=== PATIENT | female | born 1950 | race African-American/Black ===

== ENCOUNTER → 2018-04-27 | Day surgery (SDC) | payer OTHER ==
[2018-04-26 09:38] LABS: BASOPHILS # (AUTO) 0.1 (0.0-0.1); BASOPHILS % 0.3 % (0.0-1.0); EOSINOPHILS # (AUTO) 0.1 (0.0-0.4); EOSINOPHILS % 0.8 % (0.0-6.0); HEMATOCRIT 36.5 % (34.2-44.1); HEMOGLOBIN 11.5 g/dL (12.0-16.0); LYMPHOCYTES # (AUTO) 1.2 (1.0-3.2); LYMPHOCYTES % 8.1 % (18.0-39.1); MEAN CORPUSCULAR HEMOGLOBIN 27.4 pg (28-32); MEAN CORPUSCULAR HGB CONC 31.5 g/dL (31-35); MEAN CORPUSCULAR VOLUME 86.9 fL (81-99); NEUTROPHILS % 83.3 % (38.7-80.0); PLATELET COUNT 187 x10e3/uL (140-360); RED CELL DISTRIBUTION WIDTH 14.9 % (11.7-14.4)
[~2018-04-27] MED LIST: ASPIRIN325 MG PO; FUROSEMIDE40 MG PO; INSULIN REGULAR, HUMAN 100 UNIT/1 ML 3ML VIAL ONE; ISOSORBIDE DINI10 MG PO; KETAMINE HCL INJ 50 MG/ML 10 ML VIAL ONE; LIDOCAINE HCL 2% LOCAL INJ 5 ML SDV VIAL INJ ONE; LINZESS PO; MIDAZOLAM HCL 2 MG/2 ML VIAL ONE; NIFEDIPINE ER30 M1 PO; NOVOLOG MI100 UNIT/1 PO; PLAVIX75 MG PO; PROPOFOL IV EMULSION 10 MG/ML 50 ML VIAL ONE; SIMVASTATIN20 MG PO; SYNTHROID125 MCG PO
--- OUTSIDE RECORDS SUMMARY | 2018-04-27 11:27 | XMS REPORT | Clinical Summary ---
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 Disp. Refills Start End Date Status Date TURMERIC ROOT EXTRACT Take 1 tablet by mouth Active ORAL daily. METFORMIN HCL (METFORMIN Take 500 mg by mouth 2 Active ORAL) (two) times a day. ASPIRIN ORAL Take 325 mg by mouth Active daily. multivitamin (THERAGRAN) Take 1 tablet by mouth Active tablet daily. LEVOTHYROXINE SODIUM Take 75 mg by mouth Active (SYNTHROID ORAL) daily. furosemide (LASIX) 40 mg Take 40 mg by mouth Active tablet daily. insulin ASPART (NovoLOG) Inject under the skin as Active 100 unit/mL injection needed for high blood sugar (per sliding scale). Active Problems Problem Noted Date Endometrial cancer (HCC) 10/25/2016 Encounters Date Type Specialty Care Team Description 11/29/2017 Office Visit Gynecologic Oncology Abi Suh MD Endometrial cancer (Primary Dx) 08/04/2017 Office Visit Gynecologic Oncology Abi Suh MD Endometrial cancer after 04/26/2017 Family History Medical History Relation Name Comments Diabetes Brother Ovarian cancer Mother Relation Name Status Comments Brother Mother Social History Tobacco Use Types Packs/Day Years Used Date Never Smoker Smokeless Tobacco: Never Used Alcohol Use Drinks/Week oz/Week Comments No Sex Assigned at Date Recorded Not on file Last Filed Vital Signs Vital Sign Reading Time Taken Blood Pressure 119/67 11/29/2017 3:27 PM CDT Pulse 98 11/29/2017 3:27 PM CDT Temperature - - Respiratory Rate - - Oxygen Saturation - - Inhaled Oxygen - - Concentration Weight 138 kg (305 lb) 11/29/2017 3:27 PM CDT Height 170.2 cm (5' 7") 11/29/2017 3:27 PM CDT Body Mass Index 47.77 11/29/2017 3:27 PM CDT Plan of Treatment Date Type Specialty Care Team Description 05/23/2018 Office Visit Gynecologic Oncology Abi Suh MD [address] [address] Health Maintenance Due Date Last Done Comments BREAST CANCER SCREENING 01/17/2000 COLON CANCER SCREENING 01/17/2000 SHINGRIX VACCINE (#1) 01/17/2000 ZOSTER VACCINE 2010 PNEUMOCOCCAL 2015 POLYSACCHARIDE VACCINE AGE 65 AND OVER INFLUENZA VACCINE 02/08/2018 04/14/2017, 04/28/2016 PNEUMOCOCCAL-13 Completed 06/23/2017 Procedures Procedure Name Priority Date/Time Associated Diagnosis Comments [facility] Routine 01/05/2018 ORDER 12:00 AM CDT [facility] Routine 09/12/2017 ORDER 12:00 AM [employer] HE[employer] [facility] Routine 05/17/2017 ORDER 12:00 AM [employer] after 04/26/2017 Results * [facility] custom order (01/05/2018) Only the most recent of 3 results within the time period is included. Narrative Performed At after 04/26/2017 Insurance Payer Benefit Subscriber ID Type Phone Address Plan / Group MEDICAID MEDICAID xxxxxxxxx Medicaid [place]xxxxxxxx [facility]
--- OUTSIDE RECORDS SUMMARY | 2018-04-27 11:27 | XMS REPORT ---
Author Organization Unknown Address [address] [place] [address] Phone [phone] Care Team Providers Care Cable Splicing Technician Name Role Phone JUAN "SANDRINE" MANUEL LORA 3 [phone] BRENT ALSTON 61 Unavailable MARCUS ZAMORA MD 114 [phone] ADDISVINCENZO TONG 110 [phone] Allergies Code Code System Name Reaction Severity Status Onset NKDA Medications Name Status Start Date Stop Date Anoro Ellipta 62.5 mcg-25 mcg/actuation powder for inhalation Completed 04/13/2017 azithromycin 250 mg tablet Completed 07/27/2016 Breo Ellipta 100 mcg-25 mcg/dose powder for inhalation Active Not available clopidogrel 75 mg tablet Active Not available escitalopram 10 mg tablet Active Not available fluconazole 150 mg tablet Completed 04/13/2017 fluticasone 50 mcg/actuation nasal spray,suspension Completed 12/15/2016 furosemide 40 mg tablet Active Not available gabapentin 600 mg tablet Completed 04/13/2017 hydrocodone 7.5 mg-acetaminophen 325 mg tablet Active Not available ibuprofen 600 mg tablet Completed 12/15/2016 Klor-Con M20 mEq tablet,extended release Completed 10/06/2017 levothyroxine 125 mcg tablet Active Not available Linzess 145 mcg capsule Completed 06/23/2017 lisinopril 20 mg tablet Completed 10/06/2017 Lyrica 100 mg capsule Active Not available metformin 500 mg tablet Completed 10/06/2017 Microlet Lancet Completed 12/15/2016 Miralax 17 gram oral powder packet Take 1 packet every day by oral route. Completed 10/21/2017 nifedipine ER 30 mg tablet,extended release Take 1 tablet every day by oral route for 90 days. Active Not available NovoFine 30 30 gauge x 1/3" needle Completed 08/02/2017 Novofine Autocover 30 gauge x 1/3" needle Completed 09/29/2017 Novolog Mix 70-30 FlexPen U-100 Insulin 100 unit/mL subcutaneous pen Active Not available OneTouch Ultra Blue Test Strip Active Not available OneTouch Ultra2 kit Active Not available Pneumovax 23 25 mcg/0.5 mL injection syringe Completed 04/28/2016 polyethylene glycol 3350 17 gram/dose oral powder Active Not available Senna Soft 15 mg tablet Take 2 tablets every day by oral route. Completed 10/21/2017 simvastatin 20 mg tablet Take 1 tablet every day by oral route. Active Not available sulfamethoxazole 800 mg-trimethoprim 160 mg tablet Completed 04/28/2016 Tresiba FlexTouch U-100 insulin 100 unit/mL (3 mL) subcutaneous pen Active Not available Ventolin HFA 90 mcg/actuation aerosol inhaler Active Not available Victoza 3-Claudy 0.6 mg/0.1 mL (18 mg/3 mL) subcutaneous pen injector Active Not available Notes: Reconciled 04/13/17 CP Problems Name Status Onset Date Source Hypothyroidism Active 06/10/2015 History Polyneuropathy Associated with Type 2 Diabetes Mellitus Active 06/10/2015 History Pure Hypercholesterolemia Unknown 06/10/2015 History Chronic Obstructive Lung Disease Active 06/10/2015 History Sleep Apnea Active 06/10/2015 History Low Back Pain Active 07/25/2015 History Hypertensive Disorder Unknown 09/18/2015 History Morbid Obesity Active 11/27/2015 History Hypercholesterolemia Active 04/28/2016 Endometrial Carcinoma Unknown 08/26/2016 Essential Hypertension Unknown 12/15/2016 History of Malignant Neoplasm of Uterine Body Active 12/15/2016 History of Total Hysterectomy Active 12/15/2016 Endometrial Carcinoma Unknown 01/18/2017 Hypertensive Heart Failure Active 06/23/2017 Diastolic Dysfunction Active 06/23/2017 Peripheral Vascular Disease Active 06/23/2017 Procedures Date Name Performed by 07/27/[address] [phone] (Work [address]) 07/27/2016 US, Echocardiogram [address] [phone] (Work Place) 07/28/2016 US, Echocardiogram, Transthoracic, Complete [address] [phone] (Work Place) 04/13/2017 MAMMO, Screening, Bilateral [facility] [address] [place] [address] (Work [address]) 06/23/2017 Bone Density, Dual Photon Absorptiometry [facility] [address] [place] [address] (Work Place) 06/23/2017 MAMMO, Screening, Digital, Bilateral [facility] [address] [place] [address] (Work Place) Notes: 01/02/2016: S/P Cataract Surgery bilateraly; Surgery Date: 2013 S/P Cervical Laminectomy; Surgery Date: 2011 Lab Results Date Name Specimen Result Interpretation Description Value Range Status Address 09/29/2017 CMP, Serum or Plasma High Glucose 175 mg/dL 65-99 mg/dL Final [facility]: 9055 Adrienne lucy Jimenez [address] [place] [address] High Urea Nitrogen (BUN) 48 mg/dL 7-25 mg/dL Final [facility]: [address]055 [address] High Creatinine 1.68 mg/dL 0.50-0.99 mg/dL Final [facility]: 9055 [address] lucy [address] Low eGFR Non-afr. Cypriot 31 mL/min/1.73m2 > or=60 mL/min/1.73m2 Final [facility]: 9055 Adriennelucy Bryson [address] Low eGFR 36 mL/min/1.73m2 > or=60 mL/min/1.73m2 Final [facility]: 9055 Ad[address] lucy [address] High BUN/creatinine Ratio 29 (calc) 6-22 (calc) Final [facility]: 9055 [address] lucy [address] Low Sodium 134 mmol/L 135-146 mmol/L Final [facility]: [address] lucy [address] High Potassium 5.8 mmol/L 3.5-5.3 mmol/L Final [facility]: 9055 Ad[address] lucy [address] Normal Chloride 98 mmol/L 98-110 mmol/L Final [facility]: [address] lucy [address] Normal Carbon Dioxide 30 mmol/L 20-31 mmol/L Final [facility]: [address] lu[address] Normal Calcium 9.5 mg/dL 8.6-10.4 mg/dL Final [facility]: [address] Normal Protein, Total 8.0 g/dL 6.1-8.1 g/dL Final [facility]: [address] lu[address] Normal Albumin 3.7 g/dL 3.6-5.1 g/dL Final [facility]: [address] High Globulin 4.3 g/dL (calc) 1.9-3.7 g/dL (calc) Final [facility]: 9[address] lu[address] Low Albumin/globulin Ratio 0.9 (calc) 1.0-2.5 (calc) Final [facility]: [address] Normal Bilirubin, Total 0.2 mg/dL 0.2-1.2 mg/dL Final [facility]: 9055 [address] lucy [address] Normal Alkaline Phosphatase 104 U/L 33-130 U/L Final [facility]: [address] Ad[address] lucy [address] Normal Ast 16 U/L 10-35 U/L Final [facility]: [address] Ad[address] lucy [address] Normal Alt 16 U/L 6-29 U/L Final [facility]: [address]055 [address] lu[address] 09/29/2017 Lipid Panel, Serum Normal Cholesterol, Total 188 mg/dL <200 mg/dL Final [facility]: [address] lucy [address] Normal HDL Cholesterol 63 mg/dL >50 mg/dL Final [facility]: 9055 Ad[address] lucy [address] High Triglycerides 169 mg/dL <150 mg/dL Final [facility]: [address] lucy [address] Normal LDL-cholesterol 98 mg/dL (calc) Final [facility]: [address] Normal Chol/hdlc Ratio 3.0 (calc) <5.0 (calc) Final [facility]: [address] lu[address] Normal Non HDL Cholesterol 125 mg/dL (calc) <130 mg/dL (calc) Final [facility]: [address] 09/29/2017 Tech Slide Review Normal White Blood Cell Count 7.7 thousand/uL 3.8-10.8 thousand/uL Final [facility]: 9055 Davin Meredith Normal Red Blood Cell Count 4.01 million/uL 3.80-5.10 million/uL Final [facility]: [address] Low Hemoglobin 11.2 g/dL 11.7-15.5 g/dL Final [facility]: 9058 Davin Meredith Normal Hematocrit 35.0 % 35.0-45.0 % Final [facility]: 9044 Davin Meredith Normal Mcv 87.3 fL 80.0-100.0 fL Final [facility]: 9055 Adrienne Hopkins Jin Normal Mch 27.9 pg 27.0-33.0 pg Final [facility]: 9055 Dav[address] Meredith Normal Mchc 32.0 g/dL 32.0-36.0 g/dL Final [facility]: 9002 Adrienne Hopkins Jin Normal Rdw 13.6 % 11.0-15.0 % Final [facility]: 9020 Davin Meredith Normal Platelet Count 220 thousand/uL 140-400 thousand/uL Final [facility]: 9054 Davin Meredith Normal Mpv 12.4 fL 7.5-12.5 fL Final [facility]: 9049 Davin Meredith Normal Absolute Neutrophils 6699 cells/uL 1836-9988 cells/uL Final [facility]: 9039 Davin Meredith Low Absolute Lymphocytes 847 cells/uL 850-3900 cells/uL Final [facility]: 9062 Davin Meredith Low Absolute Monocytes 154 cells/uL 200-950 cells/uL Final [facility]: 9037 Adrienne Hopkins Jin Low Absolute Eosinophils 0 cells/uL 15-500 cells/uL Final [facility]: 9099 Adrienne Hopkins Jin Normal Absolute Basophils 0 cells/uL 0-200 cells/uL Final [facility]: 9062 Davin Meredith Normal Neutrophils 87 % Final [facility]: 9017 Davin Meredith Normal Lymphocytes 11 % Final [facility]: 9027 Adrienne Hopkins Jin Normal Monocytes 2 % Final [facility]: [address] [place] [address] Normal Eosinophils 0 % Final [facility]: [address] [place] [address] Normal Basophils 0 % Final [facility]: [address] [place] [address] Comment(s) Final [facility]: [address] [place] [address] 09/29/2017 HbA1C (Hemoglobin a1C), Blood High Hemoglobin a1C 9.7 % of total HGB <5.7 % of total HGB Final [facility]: [address] [place] [address] EAG (mg/dL) 232 (calc) Final [facility]: [address] [place] [address] EAG (mmol/L) 12.8 (calc) Final [facility]: [address] [place] [address] 09/29/2017 T4, Total, Serum Normal T4 (Thyroxine), Total 6.6 mcg/dL 4.5-12.0 mcg/dL Final [facility]: [address] [place] [address] 09/29/2017 BNP (B-type Natriuretic Peptide), Serum or Plasma Normal B Type Natriuretic Peptide (BNP) 18 pg/mL <100 pg/mL Final [facility]: [address] [place] [address] 09/29/2017 TSH, Serum or Plasma Normal Tsh 2.88 mIU/L 0.40-4.50 mIU/L Final [facility]: [address] [place] [address] 04/13/2017 HbA1C (Hemoglobin a1C), Blood High Hemoglobin a1C 11.1 % of total HGB <5.7 % of total HGB Final [facility]: [address] [place] [address] EAG (mg/dL) 272 (calc) Final [facility]: [address] [place] [address] EAG (mmol/L) 15.1 (calc) Final [facility]: [address] [place] [address] 04/13/2017 Lipid Panel, Serum Normal Cholesterol, Total 145 mg/dL <200 mg/dL Final [facility]: [address] [place] [address] Normal HDL Cholesterol 58 mg/dL >50 mg/dL Final [facility]: [address] [place] [address] High Triglycerides 151 mg/dL <150 mg/dL Final [facility]: [address] Ad[address] lu[address] Normal LDL-cholesterol 64 mg/dL (calc) Final [facility]: [address]055 [address] lucy [address] Normal Chol/hdlc Ratio 2.5 (calc) <5.0 (calc) Final [facility]: [address] lu[address] Normal Non HDL Cholesterol 87 mg/dL (calc) <130 mg/dL (calc) Final [facility]: [address] 04/13/2017 TSH, Serum or Plasma Normal Tsh 1.41 mIU/L 0.40-4.50 mIU/L Final [facility]: [address]055 [address] lu[address] 04/13/2017 CMP, Serum or Plasma Normal Glucose 76 mg/dL 65-99 mg/dL Final [facility]: [address] High Urea Nitrogen (BUN) 29 mg/dL 7-25 mg/dL Final [facility]: [address] High Creatinine 1.25 mg/dL 0.50-0.99 mg/dL Final [facility]: [address] Low eGFR Non-afr. Cypriot 44 mL/min/1.73m2 > or=60 mL/min/1.73m2 Final [facility]: 9055 Ad[address]ne lucy [address] Low eGFR 52 mL/min/1.73m2 > or=60 mL/min/1.73m2 Final [facility]: 9055 Ad[address]ne lucy [address] High BUN/creatinine Ratio 23 (calc) 6-22 (calc) Final [facility]: [address] Ad[address]ne lucy [address] Normal Sodium 139 mmol/L 135-146 mmol/L Final [facility]: [address] High Potassium 5.7 mmol/L 3.5-5.3 mmol/L Final [facility]: [address] lucy [address] Normal Chloride 105 mmol/L 98-110 mmol/L Final [facility]: [address] Normal Carbon Dioxide 22 mmol/L 20-31 mmol/L Final [facility]: 9055 [address] lucy [address] Normal Calcium 9.1 mg/dL 8.6-10.4 mg/dL Final [facility], Total 7.7 g/dL 6.1-8.1 g/dL Final [facility]: 9055 Adrienne Bryson [address] Normal Albumin 3.7 g/dL 3.6-5.1 g/dL Final [facility]: [address] High Globulin 4.0 g/dL (calc) 1.9-3.7 g/dL (calc) Final [facility]: 9055 [address] lucy [address] Low Albumin/globulin Ratio 0.9 (calc) 1.0-2.5 (calc) Final [facility]: 9[address] Normal Bilirubin, Total 0.2 mg/dL 0.2-1.2 mg/dL Final [facility]: 9055 [address] lucy [address] Normal Alkaline Phosphatase 100 U/L 33-130 U/L Final [facility]: 9[address] Adrienne Bryson [address] Normal Ast 11 U/L 10-35 U/L Final [facility]: [address] Ad[address]ne lucy [address] Normal Alt 11 U/L 6-29 U/L Final [facility]: 55 Adrienne lucy [address] 04/13/2017 Hepatitis C Virus RNA, Quant, PCR, Serum or Plasma Normal Hepatitis C Antibody non-reactive non-reactive Final [facility]: 55 Ad[address]ne lucy [address] Normal Signal to Cut-off 0.06 <1.00 Final [facility]: 9055 Adrienne Jimenez [address] [place] [address] 04/13/2017 CBC W/ Auto Diff Normal White Blood Cell Count 8.7 thousand/uL 3.8-10.8 thousand/uL Final [facility]: 9[address] lucy [address] Normal Red Blood Cell Count 3.98 million/uL 3.80-5.10 million/uL Final [facility]: 9055 Adrienne Bryson [address] Low Hemoglobin 10.7 g/dL 11.7-15.5 g/dL Final [facility]: [address] Low Hematocrit 33.8 % 35.0-45.0 % Final [facility]: 9055 Davin Meredith Normal Mcv 84.9 fL 80.0-100.0 fL Final [facility]: 9055 Adrienne Hopkins Jin Low Mch 26.9 pg 27.0-33.0 pg Final [facility]: 9055 Adrienne Hopkins [place] Low Mchc 31.7 g/dL 32.0-36.0 g/dL Final [facility]: 9055 Adrienne Hopkins Jin Normal Rdw 14.6 % 11.0-15.0 % Final [facility]: 9055 Adrienne Hopkins Jin Normal Platelet Count 201 thousand/uL 140-400 thousand/uL Final [facility]: 9055 Adrienne Hopkins Jin High Mpv 13.0 fL 7.5-12.5 fL Final [facility]: 9055 Adrienne Hopkins Jin Normal Absolute Neutrophils 5742 cells/uL 6249-0081 cells/uL Final [facility]: 9055 Adrienne Hopkins [place] Normal Absolute Lymphocytes 1984 cells/uL 850-3900 cells/uL Final [facility]: 9[address] Adrienne Hopkins [place] Normal Absolute Monocytes 670 cells/uL 200-950 cells/uL Final [facility]: 9055 Adrienne Hopkins [place] Normal Absolute Eosinophils 244 cells/uL 15-500 cells/uL Final [facility]: 9055 Adrienne Hopkins [place] Normal Absolute Basophils 61 cells/uL 0-200 cells/uL Final [facility]: 9055 Adrienne Hopkins Jin Normal Neutrophils 66 % Final [facility]: 9055 Adrienne Hopkins [place] Normal Lymphocytes 22.8 % Final [facility]: 9[address] Adrienne Hopkins [place] Normal Monocytes 7.7 % Final [facility]: [address] Adrienne Hopkins [place] Normal Eosinophils 2.8 % Final [facility]: 9055 Adrienne Hopkins [place] Normal Basophils 0.7 % Final [facility]: 9055 Davin Meredith 04/13/2017 T4, Free, Serum Normal T4, Free 1.5 NG/dL 0.8-1.8 NG/dL Final [facility]: [address] 06/08/2016 Lipid Panel, Serum Normal Cholesterol, Total 185 mg/dL 125- 200 mg/dL Final [facility] Lab: [address], [place] Normal HDL Cholesterol 65 mg/dL > or=46 mg/dL Final [facility]: [address], [place] Normal Triglycerides 138 mg/dL <150 mg/dL Final [facility]: [address], Liam Normal LDL-cholesterol 92 mg/dL (calc) <130 mg/dL (calc) Final [facility]: [address], Liam Normal Chol/hdlc Ratio 2.8 (calc) < or=5.0 (calc) Final [facility]: [address], [place] Normal Non HDL Cholesterol 120 mg/dL (calc) Final [facility]: [address] [facility], Liam 06/08/2016 CMP, Serum or Plasma High Glucose 192 mg/dL 65-99 mg/dL Final [facility]: [address], [place] Normal Urea Nitrogen (BUN) 24 mg/dL 7-25 mg/dL Final [facility]: [address], [place] High Creatinine 1.07 mg/dL 0.50-0.99 mg/dL Final [facility]: [address], [place] Low eGFR Non-afr. Cypriot 54 mL/min/1.73m2 > or=60 mL/min/1.73m2 Final [facility]: [address], [place] Normal eGFR 63 mL/min/1.73m2 > or=60 mL/min/1.73m2 [address] [facility]: [address], [place] Normal BUN/creatinine Ratio 22 (calc) 6-22 (calc) Final [facility]: [address], [place] Normal Sodium 136 mmol/L 135-146 mmol/L Final [facility]: [address], [place] Normal Potassium 5.1 mmol/L 3.5-5.3 mmol/L Final [facility]: [address], [place] Normal Chloride 101 mmol/L 98-110 mmol/L Final [facility]: [address], [place] Normal Carbon Dioxide 28 mmol/L 20-31 mmol/L Final [facility]: [address], [place] Normal Calcium 9.5 mg/dL 8.6-10.4 mg/dL Final [facility]: [address], [place] Normal Protein, Total 8.0 g/dL 6.1-8.1 g/dL Final [facility]: [address] [facility] [place] Normal Albumin 3.7 g/dL 3.6-5.1 g/dL Final [facility]: [address] [place] High Globulin 4.3 g/dL (calc) 1.9-3.7 g/dL (calc) Final [facility]: [address], [place] Low Albumin/globulin Ratio 0.9 (calc) 1.0-2.5 (calc) Final [facility]: [address] [place] Normal Bilirubin, Total 0.3 mg/dL 0.2-1.2 mg/dL Final [facility]: [address] [place] Normal Alkaline Phosphatase 104 U/L 33-130 U/L Final [facility]: [address], [place] Normal Ast 13 U/L 10-35 U/L Final [facility]: [address] [facility], Liam Normal Alt 12 U/L 6-29 U/L Final [facility]: [address] [facility], Liam 06/08/2016 T4, Total, Serum Normal T4 (Thyroxine), Total 7.9 mcg/dL 4.5-12.0 mcg/dL Final [facility]: [address] [facility], Liam 06/08/2016 TSH, Serum or Plasma Normal Tsh 1.39 mIU/L 0.40-4.50 mIU/L Final [facility]: [address] [facility], Liam 06/08/2016 HbA1C (Hemoglobin a1C), Blood High Hemoglobin a1C 10.1 % of total HGB <5.7 % of total HGB Final [facility]: [address] [facility], Liam Electrocardiogram Rate & Rhythm [facility]: [address] [address], [place] Qrs [facility]: [address] [address], [place] Interval [facility]: [address] [address], [place] QRS Duration [facility]: [address] [address], [place] QT Interval [facility]: [address] [facility] [address], [place] Past Encounters 10/21/2017 Follow-up Visit; Morbid Obesity; Chronic Obstructive Lung Disease; Hypertensive Heart Failure; Diastolic Dysfunction; Peripheral Vascular Disease; Continuous Opioid Dependence; Polyneuropathy Associated with Type 2 Diabetes Mellitus; History of Malignant Neoplasm of Uterine Body; Sleep Apnea; Hypothyroidism; Mixed Hyperlipidemia Juan Gonzalez MD: [id number] [address], Ph. 09/29/2017 Morbid Obesity; Sleep Apnea; Low Back Pain; Hypothyroidism; Polyneuropathy Associated with Type 2 Diabetes Mellitus; Hypertensive Heart Failure; Diastolic Dysfunction; Peripheral Vascular Disease; Chronic Obstructive Lung Disease; Chronic Constipation; History of Malignant Neoplasm of Uterine Body; History of Total Hysterectomy; Mixed Hyperlipidemia Juan Gonzalez MD: [address] [address], Ph. 09/07/2017 Dominick Marks: [address] [address], Ph. 08/02/2017 Type 2 Diabetes Mellitus; Chronic Obstructive Lung Disease Brent Alston: [address] [address], Ph. 06/23/2017 Adult Health Examination; Morbid Obesity; Polyneuropathy Associated with Type 2 Diabetes Mellitus; Moderate Major Depression; Diastolic Dysfunction; Chronic Obstructive Lung Disease; Peripheral Vascular Disease; Essential Hypertension; Hypothyroidism; Low Back Pain; Sleep Apnea; At Risk for Falls; Depression Screening; Advance Directive Discussed with Patient; Immunization; Noncompliance with Medication Regimen; Screening for Malignant Neoplasm of Colon; Screening Mammography; Postmenopausal State; History of Malignant Neoplasm of Uterine Body SIS Juarez: [id number] [facility], [address] [address], Ph. 04/13/2017 History of Malignant Neoplasm of Uterine Body; Hypercholesterolemia; Essential Hypertension; Hypothyroidism; Low Back Pain; Polyneuropathy Associated with Type 2 Diabetes Mellitus; Immunization; Antiplatelet Agent Therapy; Sleep Apnea; Viral Screening; Screening Mammography Debby MccabeAYOP: [address] [facility], [facility] [address], [place] [address], Ph. 04/04/2017 Essential Hypertension Brent Pichardot: [address] [id number], Ph. 01/17/2017 Brent Alston: [id number] Formerly [facility], [address] [address], Ph. 12/27/2016 Pattaine Alston: [address] [address], Ph. 12/15/2016 Essential Hypertension; Morbid Obesity; History of Total Hysterectomy; History of Malignant Neoplasm of Uterine Body; Antiplatelet Agent Therapy; Polyneuropathy Associated with Type 2 Diabetes Mellitus; Low Back Pain; Pure Hypercholesterolemia; Hypothyroidism Juan Gonzalez MD: [id number] [facility], [address] [address], Ph. 11/17/2016 Isismo Moss: 9055 Formerly [facility], [address] [address], Ph. 11/01/2016 Endometrial Carcinoma; Type 2 Diabetes Mellitus Brent Pichardot: [address] [address], Ph. 09/22/2016 Endometrial Carcinoma; Type 2 Diabetes Mellitus Brent Pichardot: [phone] Formerly [facility], [address] [address], Ph. 09/17/2016 Preoperative Cardiovascular Examination; Antiplatelet Agent Therapy; Endometrial Carcinoma Edward Beltrán MD: [id number] [facility], [address] [address], Ph. 08/26/2016 Hypertensive Disorder; Pure Hypercholesterolemia; Low Back Pain; Endometrial Carcinoma Juan Gonzalez MD: [id number] [facility], [facility] [address] [address], Ph. 08/11/2016 Brent Alston: [phone] Formerly [facility], [address] [address], Ph. 07/28/2016 Hypertensive Disorder Juan Gonzalez MD: [id number] [address], Ph. 07/27/2016 Examination for Suspected Cardiovascular Disease; Hypertensive Disorder; Chronic Obstructive Lung Disease; Low Back Pain; Morbid Obesity; Immunization; Polyneuropathy Associated with Type 2 Diabetes Mellitus; Antiplatelet Agent Therapy; Hypothyroidism Juan Gonzalez MD: [id number] [address], Ph. 07/26/2016 Brent Alston: [address] [address], Ph. 06/08/2016 Hypertensive Disorder; Low Back Pain; Polyneuropathy Associated with Type 2 Diabetes Mellitus; Acute Upper Respiratory Infection; Chronic Obstructive Lung Disease; Pure Hypercholesterolemia; Hypothyroidism SIS Juarez: [address] [address], Ph. 04/28/2016 Low Back Pain; Hypertensive Disorder; Uterine Fibroid Polyp; Pure Hypercholesterolemia; Hypothyroidism; Morbid Obesity; Polyneuropathy Associated with Type 2 Diabetes Mellitus; Chronic Obstructive Lung Disease; Sleep Apnea; Immunization SIS Juarez: [address] [address], Ph. Social History Smoking Status Former Smoker Vaccine List Vaccine Type influenza, high dose seasonal 04/28/20160.5 mL 04/14/20170.5 mL pneumococcal conjugate PCV 13 06/23/20170.5 mL Notes: Pt reports she got a pneumonia vaccine at [facility] last year but we do not have any records Plan of Care Patient Instructions Problem: The patient has a diagnosis of DIABETES Goal:The patients condition will be managed in the outpatient setting and the patients blood sugar will be within normal range. Interventions: -Educate the pt on the importance of blood glucose monitoring daily, keeping a log and taking medications as prescribed. - Educate the importance of eating small healthy meals such as fish chicken, complex carbohydrates-legumes, and whole grains, to stabilize blood sugars. -Educate pt on the s/s of hypoglycemia such as vertigo, CAMPBELL, confusion, weakness, anxiety, nervousness, light headed, sweaty, hungry and rapid HR. -Educate patient if blood sugar is <70 or if having any symptoms of hypoglycemia, take one of followin/2 can of regular soda pop, 1 tablespoon of sugar, 1/2 cup of orange juice, or 1 cup of milk. -Educate pt on the S/S of hyperglycemia such as blurred vision, fatigue, CAMPBELL, frequent urination, increased thirst. -Educate the pt that a HgAIC is an average of their blood glucose levels over the past 3 months and that it is important to have lab draw q3-6 months. -Educate the patient that they will need to maintain a BP of <140/80. -Educate the patient on importance of annual flu and pneumonia vaccinations -Educate pt that they will need a dilated eye exam and a comprehensive foot exam yearly, and a daily self exam of their feet.(check for dry, cracked skin, look for blisters, cuts scratches, or other sores, check for redness, increased warmth or tenderness when you touch an area, watch for ingrown toenails, corns, and calluses) -Educate pt that they will need a lipid profile yearly,(women)HDL>50LDL<100/TG<150/HDL>40 (men) -Educate the patient on consistent glucose monitoring and when to report values to the provider. Contact Provider if blood glucose is consistently > 240 after taking medications, or if blood glucose is < 60 or patient is symptomatic after interventions. Screening Recommendations 1. Vaccines Pneumococcal: discussed today and information sent with patient in their [employer] health folder Influenza: discussed today and information sent with patient in their [employer] health folder Shingles: discussed today and information sent with patient in their [employer] health folder Tetanus: discussed today and information sent with patient in their [employer] health folder 2. Mammography Screening: discussed today and information sent with patient in their [employer] health folder 3. Colorectal cancer Screening Colonoscopy: discussed today and information sent with patient in their [employer] health folder Fecal Occult Blood: discussed today and information sent with patient in their [employer] health folder 4. Bone Mass Measurement: discussed today 5. Pap test / Pelvic Exam Screening: discussed today 6. Eye Exam Screening: discussed today 7. Cholesterol Screening: discussed today 8. Diabetes Screening: discussed today It was good to see you in the office today for your Medicare Annual Wellness Visit. You have been provided some information on healthy nutrition, including a diet rich in fruits and vegetables, minimizing simple carbohydrates, salt, and saturated fats. I want to encourage regular cardiovascular exercise such as walking at least 30 minutes daily, 5 times per week. Please remember to schedule any preventive health measures that we talked about today. You have also been provided education on fall prevention and community- based lifestyle interventions to help reduce health risks and promote healthy living in your [employer] folder. Problem: The patient has a diagnosis of DIABETES Goal:The patients condition will be managed in the outpatient setting and the patients blood sugar will be within normal range. Interventions: -Educate the pt on the importance of blood glucose monitoring daily, keeping a log and taking medications as prescribed. - Educate the importance of eating small healthy meals such as fish chicken, complex carbohydrates-legumes, and whole grains, to stabilize blood sugars. -Educate pt on the s/s of hypoglycemia such as vertigo, CAMPBELL, confusion, weakness, anxiety, nervousness, light headed, sweaty, hungry and rapid HR. -Educate patient if blood sugar is <70 or if having any symptoms of hypoglycemia, take one of followin/2 can of regular soda pop, 1 tablespoon of sugar, 1/2 cup of orange juice, or 1 cup of milk. -Educate pt on the S/S of hyperglycemia such as blurred vision, fatigue, CAMPBELL, frequent urination, increased thirst. -Educate the pt that a HgAIC is an average of their blood glucose levels over the past 3 months and that it is important to have lab draw q3-6 months. -Educate the patient that they will need to maintain a BP of <140/80. -Educate the patient on importance of annual flu and pneumonia vaccinations -Educate pt that they will need a dilated eye exam and a comprehensive foot exam yearly, and a daily self exam of their feet.(check for dry, cracked skin, look for blisters, cuts scratches, or other sores, check for redness, increased warmth or tenderness when you touch an area, watch for ingrown toenails, corns, and calluses) -Educate pt that they will need a lipid profile yearly,(women)HDL>50LDL<100/TG<150/HDL>40 (men) -Educate the patient on consistent glucose monitoring and when to report values to the provider. Contact Provider if blood glucose is consistently > 240 after taking medications, or if blood glucose is < 60 or patient is symptomatic after interventions. Problem: The patient has a diagnosis of endometrial carcinoma Goal: The patients condition will be managed in the outpatient setting. INTERVENTIONS - Keep f/u care with pcp/specialists including labs and diagnostic tests - Take all medications as prescribed. - Seek immediate care for the following: arm or leg feels warm, tender, and painful. It may look swollen and red, lightheadedness and short of breath, ,chest pain when taking a deep breath or cough, coughing up blood, bowel movements are bloody or black, blood in urine, losing weight w/o trying - Eat a variety of healthy foods: fruits, vegetables, whole-grain breads, low-fat dairy products, beans, lean meats, and fish. Eat small meals every 2 to 3 hours. - Stay adequately hydrated. Problem: The patient has a diagnosis of DIABETES Goal:The patients condition will be managed in the outpatient setting and the patients blood sugar will be within normal range. Interventions: -Educate the pt on the importance of blood glucose monitoring daily, keeping a log and taking medications as prescribed. - Educate the importance of eating small healthy meals such as fish chicken, complex carbohydrates-legumes, and whole grains, to stabilize blood sugars. -Educate pt on the s/s of hypoglycemia such as vertigo, CAMPBELL, confusion, weakness, anxiety, nervousness, light headed, sweaty, hungry and rapid HR. -Educate patient if blood sugar is <70 or if having any symptoms of hypoglycemia, take one of followin/2 can of regular soda pop, 1 tablespoon of sugar, 1/2 cup of orange juice, or 1 cup of milk. -Educate pt on the S/S of hyperglycemia such as blurred vision, fatigue, CAMPBELL, frequent urination, increased thirst. -Educate the pt that a HgAIC is an average of their blood glucose levels over the past 3 months and that it is important to have lab draw q3-6 months. -Educate the patient that they will need to maintain a BP of <140/80. -Educate the patient on importance of annual flu and pneumonia vaccinations -Educate pt that they will need a dilated eye exam and a comprehensive foot exam yearly, and a daily self exam of their feet.(check for dry, cracked skin, look for blisters, cuts scratches, or other sores, check for redness, increased warmth or tenderness when you touch an area, watch for ingrown toenails, corns, and calluses) -Educate pt that they will need a lipid profile yearly,(women)HDL>50LDL<100/TG<150/HDL>40 (men) -Educate the patient on consistent glucose monitoring and when to report values to the provider. Contact Provider if blood glucose is consistently > 240 after taking medications, or if blood glucose is < 60 or patient is symptomatic after interventions. Problem: The patient has a diagnosis of endometrial carcinoma Goal: The patients condition will be managed in the outpatient setting. INTERVENTIONS - Keep f/u care with pcp/specialists including labs and diagnostic tests - Take all medications as prescribed. - Seek immediate care for the following: arm or leg feels warm, tender, and painful. It may look swollen and red, lightheadedness and short of breath, ,chest pain when taking a deep breath or cough, coughing up blood, bowel movements are bloody or black, blood in urine, losing weight w/o trying - Eat a variety of healthy foods: fruits, vegetables, whole-grain breads, low-fat dairy products, beans, lean meats, and fish. Eat small meals every 2 to 3 hours. - Stay adequately hydrated. Reminders Provider Appointments None recorded. Lab None recorded. Referral None recorded. Procedures None recorded. Surgeries None recorded. Imaging None recorded. Vitals 10/21/2017 12:00PM TCM Height Weight BMI Blood Pressure 5 ft 7 in 316 lbs 49.5 kg/m2 136/76 mm[Hg] 09/29/2017 08:30AM Est Patient Height Weight BMI Blood Pressure 5 ft 7 in 306 lbs 47.9 kg/m2 129/72 mm[Hg] 06/23/2017 01:15PM AWV Height Weight BMI Blood Pressure 5 ft 7 in 307.6 lbs 48.2 kg/m2 (1) 173/95 mm[Hg] (2) 176/86 mm[Hg] 04/13/2017 07:45AM Est Patient Height Weight BMI Blood Pressure 5 ft 7 in 307 lbs 48.1 kg/m2 (1) 144/85 mm[Hg] (2) 143/85 mm[Hg] 12/15/2016 02:30PM Est Patient Height Weight BMI Blood Pressure 5 ft 7 in 333.8 lbs 52.3 kg/m2 156/82 mm[Hg] 09/17/2016 10:15AM Work In Same Day Height Weight BMI Blood Pressure 5 ft 7 in 301 lbs 47.1 kg/m2 (1) 205/95 mm[Hg] (2) 162/82 mm[Hg] 08/26/2016 11:30AM Est Patient Height Weight BMI Blood Pressure 5 ft 7 in 296.8 lbs 46.5 kg/m2 123/59 mm[Hg] 07/27/2016 03:45PM Work In Same Day Height Weight BMI Blood Pressure 5 ft 7 in 296 lbs 46.4 kg/m2 141/70 mm[Hg] 06/08/2016 01:45PM Work In Same Day Height Weight BMI Blood Pressure 5 ft 7 in 303.4 lbs 47.5 kg/m2 126/87 mm[Hg] 04/28/2016 09:00AM Est Patient Height Weight BMI Blood Pressure 5 ft 7 in 300.6 lbs 47.1 kg/m2 137/96 mm[Hg] 01/02/2016 Height Weight BMI Blood Pressure 5 ft 7 in 298 lbs 46.67 kg/m2 122/80 mm[Hg] 11/27/2015 Height Weight BMI Blood Pressure 5 ft 7 in 300.8 lbs 47.11 kg/m2 133/67 mm[Hg] 10/23/2015 Height Weight BMI Blood Pressure 5 ft 7 in 301.8 lbs 47.26 kg/m2 127/74 mm[Hg] 09/18/2015 Height Weight BMI Blood Pressure 5 ft 7 in 302.8 lbs 47.42 kg/m2 140/90 mm[Hg] 07/25/2015 Height Weight BMI Blood Pressure 5 ft 7 in 294.2 lbs 46.07 kg/m2 135/70 mm[Hg] 06/10/2015 Height Weight BMI Blood Pressure 5 ft 7 in 294.8 lbs 46.17 kg/m2 124/86 mm[Hg] 05/05/2015 Height Weight BMI Blood Pressure 5 ft 7 in 286.2 lbs 44.82 kg/m2 124/70 mm[Hg] 03/28/2015 Weight Blood Pressure 284.6 lbs 124/76 mm[Hg] 03/28/2015 Height BMI 5 ft 7 in 44.57 kg/m2 02/20/2015 Height Weight BMI Blood Pressure 5 ft 7 in 274.8 lbs 43.04 kg/m2 132/72 mm[Hg] 12/18/2014 Height Weight BMI Blood Pressure 5 ft 7 in 279 lbs 43.69 kg/m2 126/76 mm[Hg] 10/23/2014 Height Weight BMI Blood Pressure 5 ft 7 in 270.8 lbs 42.41 kg/m2 110/60 mm[Hg] 09/26/2014 Height Weight BMI Blood Pressure 5 ft 7 in 254.6 lbs 39.87 kg/m2 140/60 mm[Hg] 09/06/2014 Height Weight BMI Blood Pressure 5 ft 7 in 270.8 lbs 42.41 kg/m2 124/70 mm[Hg] 07/01/2014 Height Weight BMI Blood Pressure 5 ft 7 in 266.2 lbs 41.69 kg/m2 130/70 mm[Hg] 06/17/2014 Height Weight BMI Blood Pressure 5 ft 7 in 279 lbs 43.69 kg/m2 120/70 mm[Hg] 05/10/2014 Height Weight BMI Blood Pressure 5 ft 7 in 260.8 lbs 40.84 kg/m2 138/64 mm[Hg] 03/14/2014 Height Weight 5 ft 7 in 253.4 lbs 01/24/2014 Height Weight 5 ft 7 in 268 lbs 12/07/2013 Weight 264 lbs 12/07/2013 Height 5 ft 7 in 10/12/2013 Height Weight 5 ft 7 in 256.8 lbs 08/15/2013 Height Weight 5 ft 7 in 255 lbs 06/26/2013 Height Weight 5 ft 7 in 261.4 lbs 03/30/2013 Height Weight 5 ft 7 in 267.4 lbs 01/18/2013 Height Weight 5 ft 7 in 275.6 lbs 08/30/2012 Height Weight 5 ft 7.5 in 275 lbs 04/07/2012 Height Weight 5 ft 7.5 in 270.6 lbs 03/29/2012 Height Weight 5 ft 7.5 in 274.8 lbs 03/20/2012 Height Weight 5 ft 7.5 in 270.4 lbs 03/16/2012 Height Weight 5 ft 7 in 276.6 lbs 02/01/2011 Height Weight 5 ft 7 in 254.4 lbs 11/27/2010 Height 5 ft 7 in 11/27/2010 Weight 252.6 lbs 09/09/2010 Height Weight 5 ft 7 in 252.6 lbs 08/27/2010 Height Weight 5 ft 7 in 267.8 lbs 07/21/2010 Height Weight 5 ft 7 in 267.8 lbs 07/15/2010 Height Weight 5 ft 7 in 264.6 lbs 07/09/2010 Height Weight 5 ft 7 in 264.6 lbs 02/17/2010 Weight 278.2 lbs 10/22/2009 Weight 294 lbs 10/20/2009 Weight 294 lbs 10/13/2009 Weight 297.4 lbs 09/12/2009 Weight 303 lbs 06/27/2009 Weight 290 lbs 02/04/2009 Height Weight 5 ft 7 in 296 lbs 01/29/2009 Height Weight 5 ft 7.75 in 276 lbs 01/09/2009 Weight 276 lbs 12/10/2008 Height Weight 5 ft 7.75 in 293 lbs 09/20/2008 Weight 295 lbs 08/13/2008 Weight 290 lbs 06/17/2008 Weight 300.7 lbs 02/19/2008 Weight 308.6 lbs 12/05/2007 Height Weight 5 ft 7.5 in 295.5 lbs 08/21/2007 Weight 284.1 lbs 05/19/2007 Weight 280.7 lbs 04/19/2007 Weight 281.7 lbs 12/07/2006 Weight 274.3 lbs 11/21/2006 Height Weight 5 ft 7.5 in 276.3 lbs 05/09/2006 Height Weight 5 ft 7.5 in 270 lbs 11/03/2005 Height Weight 5 ft 7.5 in 340 lbs 05/17/2005 Height Weight 5 ft 7.5 in 343 lbs 02/05/2005 Weight 339 lbs 01/13/2005 Weight 344 lbs 07/15/2004 Weight 318 lbs
[2018-04-27 13:35] VITALS: BP 142/73
== END | disposition home or self-care (01) ==
LOC: OR 11:23
PROVIDERS: ATTEND Internal Medicine
DX: K59.00 Constipation, unspecified (principal); K64.0 First degree hemorrhoids; J44.9 Chronic obstructive pulmonary disease, unspecified; G47.33 Obstructive sleep apnea (adult) (pediatric); I10 Essential (primary) hypertension; E03.9 Hypothyroidism, unspecified; E11.9 Type 2 diabetes mellitus without complications; Z01.810 Encounter for preprocedural cardiovascular examination; Z01.812 Encounter for preprocedural laboratory examination; Z79.4 Long term (current) use of insulin; Z79.82 Long term (current) use of aspirin; Z79.02 Long term (current) use of antithrombotics/antiplatelets; Z68.32 Body mass index [BMI] 32.0-32.9, adult; Z86.73 Personal history of transient ischemic attack (TIA), and cerebral infarction without residual deficits; Z87.891 Personal history of nicotine dependence; Z85.42 Personal history of malignant neoplasm of other parts of uterus
CPT/HCPCS: 36415 ×2; 45378; 82948; 85025; 93005; J2001; J2250